=== PATIENT | female | born 1960 | race Caucasian/White ===

== ENCOUNTER 2019-05-17 14:23 | Emergency (ER) | payer OTHER ==
[~2019-05-17] VITALS: Ht 157.5 cm; Wt 59.0 kg
[2019-05-17] MEDS ORDERED: CITA20TA19 PO (14:37)
[2019-05-17] MEDS ORDERED: TDAP DIPH,PERTUSS,TET VAC/PF 0.5 ML DISP.SYRIN IM ONE ×2 (14:45→15:01)
--- NOTE | 2019-05-17 14:54 | NUR ---
.PT IS IN ROOM #2B. DR LAZARO EVALUATED THE PT
--- NOTE | 2019-05-17 15:55 | NUR ---
Patient discharged to home in stable conditon. Written and verbal after care instructions given. Patient verbalizes understanding of instructions.
== END 2019-05-17 15:57 | disposition home or self-care (01) ==
LOC: ER 14:23
DX: S01.81XA Laceration without foreign body of other part of head, initial encounter (principal); S13.4XXA Sprain of ligaments of cervical spine, initial encounter; F32.9 Major depressive disorder, single episode, unspecified; Z79.899 Other long term (current) drug therapy; W01.198A Fall on same level from slipping, tripping and stumbling with subsequent striking against other object, initial encounter; Y93.89 Activity, other specified; Y92.89 Other specified places as the place of occurrence of the external cause; Y99.8 Other external cause status
CPT/HCPCS: 70450; 72125; 90715; A4663